=== PATIENT | female | born 1955 | race African-American/Black ===

== ENCOUNTER 2018-09-02 14:23 | Inpatient (IN) | payer MEDICARE, OTHER ==
[~2018-09-02] VITALS: Ht 165.1 cm; Wt 53.5 kg
[~2018-09-02 14:23] MED LIST: ETOMIDATE 2MG/ML 10ML VIAL IV ONE; SUCCINYLCHOLINE CHLORIDE 200MG/10ML IV ONE
[2018-09-02] MEDS ORDERED: SODIUM CHLORIDE 0.9% 1,000 ML IV ONE (14:46)
[2018-09-02 15:28] LABS: BASOPHILS % 0.5 % (0.0-2.0); EOSINOPHILS % 7.1 % (0.0-5.0); HEMATOCRIT. 27.7 % (36.0-48.0); HEMOGLOBIN. 9.3 g/dL (12.0-16.0); LYMPHOCYTES % 27.8 % (20.0-50.0); MEAN CORPUSCULAR HEMOGLOBIN 29.6 pg (28.0-32.0); MEAN CORPUSCULAR VOLUME 88.1 fL (81.0-99.0); MEAN PLATELET VOLUME 8.8 fl (7.4-10.4); MONOCYTES % 8.4 % (2.0-8.0); NEUTROPHILS % 56.2 % (40.0-76.0); PLATELET 260 x1000/uL (130-400); RED BLOOD CELL COUNT 3.14 mill/uL (4.2-5.4); RED CELL DISTRIBUTION WIDTH 14.2 % (11.6-14.6)
[2018-09-02 15:32] LABS: CHLORIDE 104 mEq/L (98-107); INR 1.1; PROTHROMBIN TIME 11.1 sec (9.1-11.1)
[2018-09-02 15:37] LABS: ETHANOL BLOOD < 10 mg/dL
[2018-09-02] MEDS ORDERED: PIPERACILLIN/TAZOBACTAM 3.375GM/50ML PREMIX IV ONE (15:45)
[2018-09-02] MEDS ORDERED: LORAZEPAM 2MG/ML CPJ IV ONE ×2 (15:45→17:30)
[2018-09-02] MEDS ORDERED: VANCOMYCIN 1 G PREMIX 200 ML IV SCH (15:45)
[2018-09-02] MEDS ORDERED: PIPERACILLIN/TAZ 3.375G PREMIX 50 ML IV NR (15:48)
[2018-09-02] MEDS ORDERED: LEVETIRACETAM 500MG PREMIX 100 ML IV ONE (16:00)
[2018-09-02 16:04] LABS: BG BASE EXCESS -0.5 mmol/L (-2.0-2.0); BG CARBOXYHEMOGLOBIN 0.3 % (0.5-1.5); BG DEOXYHEMOGLOBIN 0.5 % (0.0-5.0); BG HCO3 ACT 24.6 mmol/L (22.0-26.0); BG METHEMOGLOBIN 0.6 % (0.0-1.5); BG OXYGEN SATURATION 99.5 % (92.0-98.5); BG OXYHEMOGLOBIN 98.6 % (94.0-97.0); BG PCO2 42.6 mmHg (35.0-45.0); BG PO2 400.4 mmHg (75.0-100.0); BG SAMPLE SITE RIGHT BRACHIAL; BG TOTAL HEMOGLOBIN 9.8 g/dL (12.0-18.0); BG VENT MODE MASK - NRB
[2018-09-02 16:42] LABS: CLARITY URINE CLEAR (CLEAR); COLOR URINE YELLOW (YELLOW); KETONES URINE NEGATIVE (NEGATIVE); LEUKOCYTE ESTERASE URINE 2+ (NEGATIVE); NITRITE URINE POSITIVE (NEGATIVE); OCCULT BLOOD URINE NEGATIVE (NEGATIVE); PH URINE 5.5 (4.5-8.0); PROTEIN URINE NEGATIVE (NEGATIVE); SPECIFIC GRAVITY URINE 1.011 (1.005-1.030); UROBILINOGEN URINE 0.2 E.U./dL (0.2-1.0)
[2018-09-02 16:56] LABS: *BENZODIAZEPINES SCREEN URINE PRESUMTIVE POSITIVE (NEGATIVE); *COCAINE SCREEN URINE NEGATIVE (NEGATIVE)
[2018-09-02 16:57] LABS: *AMPHETAMINES SCREEN URINE NEGATIVE (NEGATIVE); *BARBITURATES SCREEN URINE NEGATIVE (NEGATIVE); CANNABINOID URINE SCREEN NEGATIVE (NEGATIVE); METHADONE URINE SCREEN NEGATIVE (NEGATIVE); OPIATES URINE SCREEN NEGATIVE (NEGATIVE); PHENCYCLIDINE URINE SCREEN NEGATIVE (NEGATIVE)
[2018-09-02] MEDS ORDERED: LORAZEPAM 2MG/ML CPJ ONE (17:30)
[2018-09-02] MEDS ORDERED: SUCCINYLCHOLINE CHLORIDE 200MG/10ML IV ONE (18:15)
[2018-09-02] MEDS ORDERED: ETOMIDATE 2MG/ML 10ML VIAL IV ONE (18:15)
[2018-09-02] MEDS ORDERED: PROPOFOL 10MG/ML 100ML 100 ML IV ONE (18:15)
[2018-09-02] MEDS ORDERED: CLONIDINE 0.1MG TABLET PO PRN (22:15)
[2018-09-02] MEDS ORDERED: ONDANSETRON HCL 4MG/2ML INJ IV PRN (22:15)
[2018-09-02] MEDS ORDERED: CEFTRIAXONE 1 G PREMIX 50 ML IV SCH (22:15)
[2018-09-02] MEDS ORDERED: PANTOPRAZOLE 80 MG in SODIUM CHLORIDE 0.9% 100 ML IV SCH (22:15)
[2018-09-02] MEDS ORDERED: PANTOPRAZOLE SODIUM 40 MG/VIAL IV ONE (22:26)
[2018-09-02] MEDS ORDERED: PROPOFOL 10MG/ML 100ML 100 ML IV SCH (22:30)
[2018-09-02] MEDS: SODIUM CHLORIDE 0.9% 1,000 ML IV SCH (22:32)
[2018-09-02] MEDS: LORAZEPAM 2MG/ML CPJ IV PRN (22:45)
[2018-09-03] VITALS (72 sets, daily range): BP systolic 64–165; BP diastolic 30–101
[2018-09-03] MEDS ORDERED: CEFTRIAXONE 1 G PREMIX 50 ML IV SCH (06:00)
[2018-09-03] MEDS ORDERED: PROPOFOL 10MG/ML 100ML 100 ML IV PRN ×3 (06:45→20:22)
[2018-09-03] MEDS: LORAZEPAM 2MG/ML CPJ IV PRN (07:41)
[2018-09-03 08:21] LABS: BG BASE EXCESS 3.1 mmol/L (-2.0-2.0); BG CARBOXYHEMOGLOBIN 0.3 % (0.5-1.5); BG DEOXYHEMOGLOBIN 0.8 % (0.0-5.0); BG FRACTION INSPIRED OXYGEN 40; BG HCO3 ACT 22.5 mmol/L (22.0-26.0); BG METHEMOGLOBIN 0.3 % (0.0-1.5); BG OXYGEN SATURATION 99.2 % (92.0-98.5); BG OXYHEMOGLOBIN 98.6 % (94.0-97.0); BG PCO2 20.2 mmHg (35.0-45.0); BG PH 7.665 (7.350-7.450); BG PO2 191.5 mmHg (75.0-100.0); BG SAMPLE SITE RIGHT BRACHIAL; BG TIDAL VOLUME(mL) 450 mL; BG TOTAL HEMOGLOBIN 10.2 g/dL (12.0-18.0); BG VENT MODE VENT - A/C; BG VENT RATE 14 set
[2018-09-03] MEDS ORDERED: NON FORMULARY PATIENT HOME MED EA XX SCH (09:00)
[2018-09-03] MEDS ORDERED: LEVETIRACETAM 1,000 MG in SODIUM CHLORIDE 0.9% 100 ML IV SCH (09:00)
[2018-09-03] MEDS ORDERED: PIPERACILLIN/TAZOBACTAM 3.375GM/50ML PREMIX IV ONE (09:15)
[2018-09-03] MEDS ORDERED: PHENYTOIN SODIUM 1000MG in SODIUM CHLORIDE 0.9% 100ML IV NR (09:15)
[2018-09-03 09:18] LABS: BASOPHILS % 0.6 % (0.0-2.0); HEMOGLOBIN. 9.6 g/dL (12.0-16.0); LYMPHOCYTES % 14.7 % (20.0-50.0); MEAN CORPUSCULAR HEMOGLOBIN 28.9 pg (28.0-32.0); MEAN PLATELET VOLUME 9.3 fl (7.4-10.4); MONOCYTES % 6.2 % (2.0-8.0); NEUTROPHILS % 76.5 % (40.0-76.0); PLATELET 273 x1000/uL (130-400); RED BLOOD CELL COUNT 3.34 mill/uL (4.2-5.4); RED CELL DISTRIBUTION WIDTH 13.8 % (11.6-14.6)
[2018-09-03] MEDS: PANTOPRAZOLE SODIUM 40 MG/VIAL IV SCH (09:57)
[2018-09-03] MEDS: SODIUM CHLORIDE 0.9% 1,000 ML IV SCH (09:58)
[2018-09-03] MEDS: VANCOMYCIN 750 MG PREMIX 150 ML IV SCH ×2 (10:27→22:34)
[2018-09-03 10:50] LABS: CHLORIDE 107 mEq/L (98-107)
[2018-09-03 10:59] LABS: CREATINE KINASE MB FRACTION 15.8 ng/mL (0.5-3.6); PHOSPHORUS 1.3 mg/dL (2.5-4.9)
[2018-09-03] MEDS: PIPERACILLIN/TAZ 3.375G PREMIX 50 ML IV SCH ×3 (11:06→22:35)
[2018-09-03] MEDS: NOREPINEPHRINE 4 MG in DEXT 5% WATER 246 ML IV PRN ×2 (11:06→22:19)
[2018-09-03] MEDS ORDERED: POTASSIUM CHLORIDE 20MEQ/PACKET PO NR (13:20)
[2018-09-03] MEDS ORDERED: POTASSIUM CHLORIDE INJ 40 MEQ in DEXT 5% WATER 500 ML IV NR (14:30)
[2018-09-03 15:41] LABS: BG BASE EXCESS 3.6 mmol/L (-2.0-2.0); BG CARBOXYHEMOGLOBIN 0.3 % (0.5-1.5); BG DEOXYHEMOGLOBIN 0.8 % (0.0-5.0); BG FRACTION INSPIRED OXYGEN 40; BG HCO3 ACT 22.1 mmol/L (22.0-26.0); BG METHEMOGLOBIN 0.4 % (0.0-1.5); BG OXYGEN SATURATION 99.2 % (92.0-98.5); BG OXYHEMOGLOBIN 98.5 % (94.0-97.0); BG PCO2 18.4 mmHg (35.0-45.0); BG PH 7.698 (7.350-7.450); BG PO2 209.5 mmHg (75.0-100.0); BG SAMPLE SITE RIGHT BRACHIAL; BG TIDAL VOLUME(mL) 450 mL; BG VENT MODE VENT - A/C; BG VENT RATE 14 set
[2018-09-03 17:14] LABS: BG BASE EXCESS -1.1 mmol/L (-2.0-2.0); BG CARBOXYHEMOGLOBIN 0.3 % (0.5-1.5); BG DEOXYHEMOGLOBIN 0.9 % (0.0-5.0); BG FRACTION INSPIRED OXYGEN 40; BG HCO3 ACT 19.8 mmol/L (22.0-26.0); BG METHEMOGLOBIN 0.5 % (0.0-1.5); BG OXYGEN SATURATION 99.1 % (92.0-98.5); BG OXYHEMOGLOBIN 98.3 % (94.0-97.0); BG PCO2 22.4 mmHg (35.0-45.0); BG PH 7.564 (7.350-7.450); BG PO2 208.3 mmHg (75.0-100.0); BG SAMPLE SITE RIGHT BRACHIAL; BG TIDAL VOLUME(mL) 450 mL; BG TOTAL HEMOGLOBIN 10.7 g/dL (12.0-18.0); BG VENT MODE VENT - A/C; BG VENT RATE 12 set
[2018-09-03] MEDS: LEVETIRACETAM 1,500 MG in SODIUM CHLORIDE 0.9% 100 ML IV SCH (20:43)
[2018-09-03] MEDS: LAMOTRIGINE 100MG TABLET PO SCH (20:44)
[2018-09-03] MEDS: PHENYTOIN SODIUM EXTENDED 100MG CAPSULE PO SCH (20:44)
[2018-09-03 21:05] LABS: CREATINE KINASE MB FRACTION 9.9 ng/mL (0.5-3.6)
[2018-09-03] MEDS: THIAMINE HCL 100MG TABLET PO SCH (22:34)
[2018-09-03] MEDS: MULTIVITAMINS,THER W-MINERALS TABLET PO SCH (22:35)
[2018-09-03] MEDS: FOLIC ACID 1MG TABLET PO SCH (22:35)
[2018-09-04] VITALS (81 sets, daily range): BP systolic 75–157; BP diastolic 27–140
[2018-09-04] MEDS: PIPERACILLIN/TAZ 3.375G PREMIX 50 ML IV SCH ×4 (05:45→23:09)
[2018-09-04 07:32] LABS: HEMOGLOBIN. 9.3 g/dL (12.0-16.0); MEAN CORPUSCULAR HEMOGLOBIN 29.9 pg (28.0-32.0); MEAN CORPUSCULAR VOLUME 86.8 fL (81.0-99.0); MEAN PLATELET VOLUME 10.1 fl (7.4-10.4); PLATELET 281 x1000/uL (130-400); RED BLOOD CELL COUNT 3.12 mill/uL (4.2-5.4); RED CELL DISTRIBUTION WIDTH 14.1 % (11.6-14.6)
[2018-09-04 07:33] LABS: CHLORIDE 103 mEq/L (98-107)
[2018-09-04 08:27] LABS: PLATELET ESTIMATE NORMAL
[2018-09-04] MEDS: PANTOPRAZOLE SODIUM 40 MG/VIAL IV SCH (08:54)
[2018-09-04] MEDS: MULTIVITAMINS,THER W-MINERALS TABLET PO SCH (08:55)
[2018-09-04] MEDS: LAMOTRIGINE 100MG TABLET PO SCH ×2 (08:55→20:52)
[2018-09-04] MEDS: THIAMINE HCL 100MG TABLET PO SCH (08:55)
[2018-09-04] MEDS: FOLIC ACID 1MG TABLET PO SCH (08:55)
[2018-09-04] MEDS: LEVETIRACETAM 1,500 MG in SODIUM CHLORIDE 0.9% 100 ML IV SCH ×2 (08:55→20:51)
[2018-09-04] MEDS: SODIUM CHLORIDE 0.9% 1,000 ML IV SCH ×2 (09:00→20:22)
[2018-09-04 09:21] LABS: BG BASE EXCESS -4.2 mmol/L (-2.0-2.0); BG CARBOXYHEMOGLOBIN 0.3 % (0.5-1.5); BG DEOXYHEMOGLOBIN 0.8 % (0.0-5.0); BG FRACTION INSPIRED OXYGEN 40; BG HCO3 ACT 17.5 mmol/L (22.0-26.0); BG METHEMOGLOBIN 0.5 % (0.0-1.5); BG OXYGEN SATURATION 99.2 % (92.0-98.5); BG OXYHEMOGLOBIN 98.4 % (94.0-97.0); BG PCO2 22.1 mmHg (35.0-45.0); BG PH 7.516 (7.350-7.450); BG PO2 174.7 mmHg (75.0-100.0); BG SAMPLE SITE RIGHT BRACHIAL; BG TIDAL VOLUME(mL) 450 mL; BG TOTAL HEMOGLOBIN 9.5 g/dL (12.0-18.0); BG VENT MODE VENT - A/C; BG VENT RATE 12 set
[2018-09-04] MEDS ORDERED: PROPOFOL 10MG/ML 100ML 100 ML IV PRN (10:30)
[2018-09-04] MEDS ORDERED: VANCOMYCIN 750 MG PREMIX 150 ML IV SCH (11:00)
[2018-09-04] MEDS: NOREPINEPHRINE 4 MG in DEXT 5% WATER 246 ML IV PRN (12:48)
[2018-09-04] MEDS ORDERED: POTASSIUM CHLORIDE INJ 40 MEQ in DEXT 5% WATER 250 ML IV NR (14:00)
[2018-09-04] MEDS: FENTANYL CITRATE/PF 500 MCG in SODIUM CHLORIDE 0.9% 40 ML IV PRN ×2 (14:07→20:21)
[2018-09-04] MEDS: MIDAZOLAM HCL 50 MG in DEXTROSE 5% WATER 40 ML IV PRN ×2 (14:08→20:20)
[2018-09-04] MEDS: PHENYTOIN SODIUM EXTENDED 100MG CAPSULE PO SCH (20:52)
[2018-09-04] MEDS: PHENYTOIN 100 MG/4 ML UDC GT SCH (23:12)
[2018-09-05] VITALS (82 sets, daily range): BP systolic 82–182; BP diastolic 55–110
[2018-09-05] MEDS: MIDAZOLAM HCL 50 MG in DEXTROSE 5% WATER 40 ML IV PRN ×2 (02:58→07:33)
[2018-09-05] MEDS: FENTANYL CITRATE/PF 500 MCG in SODIUM CHLORIDE 0.9% 40 ML IV PRN ×4 (02:59→18:59)
[2018-09-05] MEDS: PIPERACILLIN/TAZ 3.375G PREMIX 50 ML IV SCH ×4 (05:22→23:35)
[2018-09-05 05:54] LABS: CHLORIDE 104 mEq/L (98-107)
[2018-09-05 05:59] LABS: PHOSPHORUS 1.6 mg/dL (2.5-4.9)
[2018-09-05 07:35] LABS: BASOPHILS % 0.4 % (0.0-2.0); HEMATOCRIT. 31.8 % (36.0-48.0); HEMOGLOBIN. 10.3 g/dL (12.0-16.0); LYMPHOCYTES % 12.5 % (20.0-50.0); MEAN CORPUSCULAR HEMOGLOBIN 28.5 pg (28.0-32.0); MEAN CORPUSCULAR VOLUME 87.8 fL (81.0-99.0); MEAN PLATELET VOLUME 9.2 fl (7.4-10.4); MONOCYTES % 13.9 % (2.0-8.0); NEUTROPHILS % 71.2 % (40.0-76.0); PLATELET 305 x1000/uL (130-400); RED BLOOD CELL COUNT 3.62 mill/uL (4.2-5.4); RED CELL DISTRIBUTION WIDTH 14.1 % (11.6-14.6)
[2018-09-05] MEDS: THIAMINE HCL 100MG TABLET PO SCH (08:05)
[2018-09-05] MEDS: LAMOTRIGINE 100MG TABLET PO SCH ×2 (08:05→21:39)
[2018-09-05] MEDS: FOLIC ACID 1MG TABLET PO SCH (08:05)
[2018-09-05] MEDS: PANTOPRAZOLE SODIUM 40 MG/VIAL IV SCH (08:05)
[2018-09-05] MEDS: MULTIVITAMINS,THER W-MINERALS TABLET PO SCH (08:05)
[2018-09-05] MEDS: LEVETIRACETAM 1,500 MG in SODIUM CHLORIDE 0.9% 100 ML IV SCH ×2 (08:05→21:39)
[2018-09-05] MEDS ORDERED: SODIUM PHOS,M-BASIC-D-BASIC 20 MM in DEXT 5% WATER 243.3333 ML IV SCH (09:00)
[2018-09-05] MEDS: MAGNESIUM SULFATE 3 GM in DEXT 5% WATER 94 ML IV SCH ×2 (09:05→09:08)
[2018-09-05] MEDS: METOCLOPRAMIDE HCL 10MG/2ML VIAL IV SCH ×3 (16:26→23:36)
[2018-09-05] MEDS: SODIUM CHLORIDE 0.9% 1,000 ML IV SCH ×2 (16:27→23:35)
[2018-09-05] MEDS: NOREPINEPHRINE 4 MG in DEXT 5% WATER 246 ML IV PRN (16:28)
[2018-09-05] MEDS: PHENYTOIN 100 MG/4 ML UDC GT SCH (21:39)
[2018-09-06] VITALS (93 sets, daily range): BP systolic 80–147; BP diastolic 48–84
[2018-09-06] MEDS: MIDAZOLAM HCL 50 MG in DEXTROSE 5% WATER 40 ML IV PRN ×2 (01:24→06:36)
[2018-09-06] MEDS: FENTANYL CITRATE/PF 500 MCG in SODIUM CHLORIDE 0.9% 40 ML IV PRN ×3 (01:51→23:12)
[2018-09-06] MEDS: PIPERACILLIN/TAZ 3.375G PREMIX 50 ML IV SCH ×3 (05:36→18:43)
[2018-09-06] MEDS: METOCLOPRAMIDE HCL 10MG/2ML VIAL IV SCH ×3 (05:36→18:44)
[2018-09-06 06:30] LABS: BASOPHILS % 0.4 % (0.0-2.0); EOSINOPHILS % 10.6 % (0.0-5.0); HEMATOCRIT. 26.5 % (36.0-48.0); HEMOGLOBIN. 8.8 g/dL (12.0-16.0); LYMPHOCYTES % 22.5 % (20.0-50.0); MEAN CORPUSCULAR HEMOGLOBIN 29.3 pg (28.0-32.0); MEAN CORPUSCULAR VOLUME 87.9 fL (81.0-99.0); MEAN PLATELET VOLUME 9.1 fl (7.4-10.4); MONOCYTES % 12.5 % (2.0-8.0); PLATELET 248 x1000/uL (130-400); RED BLOOD CELL COUNT 3.01 mill/uL (4.2-5.4); RED CELL DISTRIBUTION WIDTH 14.4 % (11.6-14.6)
[2018-09-06 07:16] LABS: CHLORIDE 107 mEq/L (98-107)
[2018-09-06 07:22] LABS: LDL CHOLESTEROL 78 mg/dL (5-100)
[2018-09-06] MEDS: NOREPINEPHRINE 4 MG in DEXT 5% WATER 246 ML IV PRN (08:30)
[2018-09-06] MEDS: THIAMINE HCL 100MG TABLET PO SCH (09:55)
[2018-09-06] MEDS: FOLIC ACID 1MG TABLET PO SCH (09:55)
[2018-09-06] MEDS: LAMOTRIGINE 100MG TABLET PO SCH ×2 (09:55→20:31)
[2018-09-06] MEDS: PANTOPRAZOLE SODIUM 40 MG/VIAL IV SCH (09:55)
[2018-09-06] MEDS: MULTIVITAMINS,THER W-MINERALS TABLET PO SCH (09:55)
[2018-09-06] MEDS: LEVETIRACETAM 1,500 MG in SODIUM CHLORIDE 0.9% 100 ML IV SCH ×2 (10:01→20:30)
[2018-09-06] MEDS ORDERED: DEXT 10% WATER 1,000 ML IV SCH (10:45)
[2018-09-06] MEDS ORDERED: DEXTROSE 50% WATER 50ML SYRINGE IV PRN (10:45)
[2018-09-06 11:58] LABS: BG BASE EXCESS -5.7 mmol/L (-2.0-2.0); BG CARBOXYHEMOGLOBIN 0.3 % (0.5-1.5); BG FRACTION INSPIRED OXYGEN 40; BG HCO3 ACT 19.3 mmol/L (22.0-26.0); BG METHEMOGLOBIN 0.4 % (0.0-1.5); BG OXYHEMOGLOBIN 98.3 % (94.0-97.0); BG PCO2 35.5 mmHg (35.0-45.0); BG PEEP (cmH2O) 0 cmH2O; BG PH 7.353 (7.350-7.450); BG PO2 175.4 mmHg (75.0-100.0); BG PRESSURE SUPPORT 8; BG SAMPLE SITE RIGHT RADIAL; BG TOTAL HEMOGLOBIN 8.6 g/dL (12.0-18.0); BG VENT MODE VENT - CPAP
[2018-09-06] MEDS: ACETAMINOPHEN 325MG TABLET PO PRN (20:25)
[2018-09-06] MEDS: PHENYTOIN 100 MG/4 ML UDC GT SCH (20:30)
[2018-09-06] MEDS: SODIUM CHLORIDE 0.9% 1,000 ML IV SCH (23:19)
[2018-09-07] VITALS (92 sets, daily range): BP systolic 73–148; BP diastolic 30–93
[2018-09-07] MEDS: MIDAZOLAM HCL 50 MG in DEXTROSE 5% WATER 40 ML IV PRN ×2 (00:39→06:46)
[2018-09-07] MEDS: PIPERACILLIN/TAZ 3.375G PREMIX 50 ML IV SCH ×5 (00:51→22:15)
[2018-09-07] MEDS: NOREPINEPHRINE 4 MG in DEXT 5% WATER 246 ML IV PRN (05:11)
[2018-09-07] MEDS: SODIUM CHLORIDE 0.9% 1,000 ML IV SCH ×2 (05:12→11:49)
[2018-09-07] MEDS: METOCLOPRAMIDE HCL 10MG/2ML VIAL IV SCH ×2 (05:19)
[2018-09-07 05:30] LABS: BASOPHILS % 0.5 % (0.0-2.0); EOSINOPHILS % 12.6 % (0.0-5.0); HEMATOCRIT. 23.5 % (36.0-48.0); HEMOGLOBIN. 7.7 g/dL (12.0-16.0); LYMPHOCYTES % 20.6 % (20.0-50.0); MEAN CORPUSCULAR VOLUME 87.9 fL (81.0-99.0); MEAN PLATELET VOLUME 8.8 fl (7.4-10.4); MONOCYTES % 13.6 % (2.0-8.0); NEUTROPHILS % 52.7 % (40.0-76.0); PLATELET 265 x1000/uL (130-400); RED BLOOD CELL COUNT 2.67 mill/uL (4.2-5.4); RED CELL DISTRIBUTION WIDTH 14.3 % (11.6-14.6)
[2018-09-07 05:43] LABS: CHLORIDE 111 mEq/L (98-107)
[2018-09-07] MEDS: PANTOPRAZOLE SODIUM 40 MG/VIAL IV SCH (09:00)
[2018-09-07] MEDS: LEVETIRACETAM 1,500 MG in SODIUM CHLORIDE 0.9% 100 ML IV SCH ×2 (09:25→21:12)
[2018-09-07] MEDS: FENTANYL CITRATE/PF 500 MCG in SODIUM CHLORIDE 0.9% 40 ML IV PRN (09:25)
[2018-09-07] MEDS: FOLIC ACID 1MG TABLET PO SCH (09:31)
[2018-09-07] MEDS: MULTIVITAMINS,THER W-MINERALS TABLET PO SCH (09:31)
[2018-09-07] MEDS: THIAMINE HCL 100MG TABLET PO SCH (09:31)
[2018-09-07] MEDS: LAMOTRIGINE 100MG TABLET PO SCH ×2 (09:31→20:16)
[2018-09-07] MEDS ORDERED: IPRATROPIUM/ALBUTEROL 0.5-3(2.5)MG/3ML NEB HHN PRN (11:30)
[2018-09-07] MEDS: IPRATROPIUM/ALBUTEROL 0.5-3(2.5)MG/3ML NEB HHN SCH ×3 (12:36→19:55)
[2018-09-07] MEDS: ACETYLCYSTEINE 100MG/ML 10% VIAL 4ML INH SCH (12:36)
[2018-09-07] MEDS: ACETAMINOPHEN 325MG TABLET PO PRN (16:03)
[2018-09-07] MEDS: LORAZEPAM 2MG/ML CPJ IV PRN ×2 (16:03→20:16)
[2018-09-07] MEDS: PHENYTOIN 100 MG/4 ML UDC GT SCH (20:16)
[2018-09-08] VITALS (95 sets, daily range): BP systolic 78–184; BP diastolic 38–117
[2018-09-08] MEDS: IPRATROPIUM/ALBUTEROL 0.5-3(2.5)MG/3ML NEB HHN SCH ×7 (00:02→23:48)
[2018-09-08] MEDS: ACETYLCYSTEINE 100MG/ML 10% VIAL 4ML INH SCH ×4 (00:02→23:48)
[2018-09-08] MEDS: ACETAMINOPHEN 325MG TABLET PO PRN ×4 (00:30→23:40)
[2018-09-08] MEDS: PIPERACILLIN/TAZ 3.375G PREMIX 50 ML IV SCH ×4 (04:41→23:28)
[2018-09-08 05:44] LABS: BASOPHILS % 0.7 % (0.0-2.0); EOSINOPHILS % 4.2 % (0.0-5.0); HEMATOCRIT. 21.6 % (36.0-48.0); HEMOGLOBIN. 7.2 g/dL (12.0-16.0); LYMPHOCYTES % 16.9 % (20.0-50.0); MEAN CORPUSCULAR HEMOGLOBIN 29.2 pg (28.0-32.0); MEAN CORPUSCULAR VOLUME 87.1 fL (81.0-99.0); MEAN PLATELET VOLUME 8.4 fl (7.4-10.4); MONOCYTES % 14.5 % (2.0-8.0); NEUTROPHILS % 63.7 % (40.0-76.0); PLATELET 289 x1000/uL (130-400); RED BLOOD CELL COUNT 2.48 mill/uL (4.2-5.4); RED CELL DISTRIBUTION WIDTH 14.1 % (11.6-14.6)
[2018-09-08 06:10] LABS: CHLORIDE 107 mEq/L (98-107)
[2018-09-08] MEDS: PANTOPRAZOLE SODIUM 40 MG/VIAL IV SCH (08:37)
[2018-09-08] MEDS: LAMOTRIGINE 100MG TABLET PO SCH ×2 (08:37→21:10)
[2018-09-08] MEDS: FOLIC ACID 1MG TABLET PO SCH (08:37)
[2018-09-08] MEDS: MULTIVITAMINS,THER W-MINERALS TABLET PO SCH (08:37)
[2018-09-08] MEDS: THIAMINE HCL 100MG TABLET PO SCH (08:37)
[2018-09-08] MEDS: LEVETIRACETAM 1,500 MG in SODIUM CHLORIDE 0.9% 100 ML IV SCH ×2 (08:50→21:09)
[2018-09-08] MEDS ORDERED: LORAZEPAM 2MG/ML CPJ IV PRN (09:15)
[2018-09-08] MEDS: MORPHINE SULFATE 4 MG/ML CPJ (NOT FOR IM USE) IV PRN ×2 (09:41→22:40)
[2018-09-08] MEDS ORDERED: KCL 10MEQ/50ML PREMIX 200 ML IV PRN (09:45)
[2018-09-08] MEDS ORDERED: QUETIAPINE FUMARATE 25MG TABLET NG SCH (10:15)
[2018-09-08] MEDS: SODIUM CHLORIDE 0.9% 1,000 ML IV SCH ×2 (10:20→12:02)
[2018-09-08 10:28] LABS: PHOSPHORUS 2.5 mg/dL (2.5-4.9)
[2018-09-08] MEDS ORDERED: MAGNESIUM 1 G PREMIX 100 ML IV NR (11:00)
[2018-09-08] MEDS: QUETIAPINE FUMARATE 25MG TABLET NG SCH ×2 (12:01→21:10)
[2018-09-08] MEDS ORDERED: POTASSIUM CHLORIDE INJ 40 MEQ in DEXT 5% WATER 250 ML IV NR (13:30)
[2018-09-08] MEDS: LORAZEPAM 2MG/ML CPJ IV PRN (17:59)
[2018-09-08] MEDS: PHENYTOIN 100 MG/4 ML UDC GT SCH (21:09)
[2018-09-09] VITALS (47 sets, daily range): BP systolic 80–172; BP diastolic 39–123
[2018-09-09] MEDS: SODIUM CHLORIDE 0.9% 1,000 ML IV SCH ×2 (01:19→05:40)
[2018-09-09] MEDS: IPRATROPIUM/ALBUTEROL 0.5-3(2.5)MG/3ML NEB HHN SCH ×5 (04:12→20:20)
[2018-09-09] MEDS: PIPERACILLIN/TAZ 3.375G PREMIX 50 ML IV SCH ×3 (05:40→17:05)
[2018-09-09 06:17] LABS: BASOPHILS % 0.6 % (0.0-2.0); HEMATOCRIT. 25.3 % (36.0-48.0); HEMOGLOBIN. 8.6 g/dL (12.0-16.0); LYMPHOCYTES % 17.5 % (20.0-50.0); MEAN CORPUSCULAR HEMOGLOBIN 29.2 pg (28.0-32.0); MEAN CORPUSCULAR VOLUME 85.1 fL (81.0-99.0); MEAN PLATELET VOLUME 8.1 fl (7.4-10.4); MONOCYTES % 10.5 % (2.0-8.0); NEUTROPHILS % 63.4 % (40.0-76.0); PLATELET 305 x1000/uL (130-400); RED BLOOD CELL COUNT 2.97 mill/uL (4.2-5.4); RED CELL DISTRIBUTION WIDTH 14.1 % (11.6-14.6)
[2018-09-09 06:47] LABS: CHLORIDE 108 mEq/L (98-107)
[2018-09-09] MEDS: LORAZEPAM 2MG/ML CPJ IV PRN ×3 (07:02→22:31)
[2018-09-09] MEDS: ACETYLCYSTEINE 100MG/ML 10% VIAL 4ML INH SCH ×2 (08:13→16:34)
[2018-09-09] MEDS: PANTOPRAZOLE SODIUM 40 MG/VIAL IV SCH (08:39)
[2018-09-09] MEDS: LEVETIRACETAM 1,500 MG in SODIUM CHLORIDE 0.9% 100 ML IV SCH ×2 (08:39→21:54)
[2018-09-09] MEDS: LAMOTRIGINE 100MG TABLET PO SCH ×2 (08:40→21:54)
[2018-09-09] MEDS: QUETIAPINE FUMARATE 25MG TABLET NG SCH ×2 (08:40→21:54)
[2018-09-09] MEDS: THIAMINE HCL 100MG TABLET PO SCH (08:40)
[2018-09-09] MEDS: MULTIVITAMINS,THER W-MINERALS TABLET PO SCH (08:40)
[2018-09-09] MEDS: FOLIC ACID 1MG TABLET PO SCH (08:40)
[2018-09-09] MEDS: AMLODIPINE 2.5MG TABLET PO SCH ×2 (10:07→21:54)
[2018-09-09] MEDS: MORPHINE SULFATE 4 MG/ML CPJ (NOT FOR IM USE) IV PRN ×2 (15:55→20:05)
[2018-09-09] MEDS ORDERED: PHENYTOIN SODIUM IV NR (18:00)
[2018-09-09] MEDS ORDERED: SODIUM CHLORIDE 0.9% IV NR (18:00)
[2018-09-09] MEDS: PHENYTOIN 100 MG/4 ML UDC GT SCH (20:29)
[2018-09-09] MEDS: ACETAMINOPHEN 325MG TABLET PO PRN (22:30)
[2018-09-10] VITALS (44 sets, daily range): BP systolic 83–159; BP diastolic 40–101
[2018-09-10] MEDS: PIPERACILLIN/TAZ 3.375G PREMIX 50 ML IV SCH (00:18)
[2018-09-10] MEDS: ACETYLCYSTEINE 100MG/ML 10% VIAL 4ML INH SCH ×3 (00:20→16:37)
[2018-09-10] MEDS: IPRATROPIUM/ALBUTEROL 0.5-3(2.5)MG/3ML NEB HHN SCH ×6 (00:20→20:09)
[2018-09-10] MEDS: MORPHINE SULFATE 4 MG/ML CPJ (NOT FOR IM USE) IV PRN ×3 (05:03→21:19)
[2018-09-10 05:46] LABS: BASOPHILS % 0.4 % (0.0-2.0); EOSINOPHILS % 8.4 % (0.0-5.0); HEMATOCRIT. 23.3 % (36.0-48.0); LYMPHOCYTES % 14.1 % (20.0-50.0); MEAN CORPUSCULAR HEMOGLOBIN 29.5 pg (28.0-32.0); MEAN CORPUSCULAR VOLUME 85.8 fL (81.0-99.0); MEAN PLATELET VOLUME 8.2 fl (7.4-10.4); MONOCYTES % 9.8 % (2.0-8.0); NEUTROPHILS % 67.3 % (40.0-76.0); PLATELET 325 x1000/uL (130-400); RED BLOOD CELL COUNT 2.72 mill/uL (4.2-5.4); RED CELL DISTRIBUTION WIDTH 14.2 % (11.6-14.6)
[2018-09-10 07:16] LABS: CHLORIDE 110 mEq/L (98-107)
[2018-09-10] MEDS: QUETIAPINE FUMARATE 25MG TABLET NG SCH ×2 (08:58→20:54)
[2018-09-10] MEDS: FOLIC ACID 1MG TABLET PO SCH (08:58)
[2018-09-10] MEDS: LAMOTRIGINE 100MG TABLET PO SCH ×2 (08:58→20:54)
[2018-09-10] MEDS: PANTOPRAZOLE SODIUM 40 MG/VIAL IV SCH (08:58)
[2018-09-10] MEDS: THIAMINE HCL 100MG TABLET PO SCH (08:58)
[2018-09-10] MEDS: AMLODIPINE 2.5MG TABLET PO SCH ×2 (08:59→20:54)
[2018-09-10] MEDS: MULTIVITAMINS,THER W-MINERALS TABLET PO SCH (08:59)
[2018-09-10] MEDS: LORAZEPAM 2MG/ML CPJ IV PRN ×2 (09:25→13:49)
[2018-09-10] MEDS: LEVETIRACETAM 1,500 MG in SODIUM CHLORIDE 0.9% 100 ML IV SCH ×2 (10:49→20:55)
[2018-09-10] MEDS ORDERED: POTASSIUM CHLORIDE 20MEQ/PACKET PO NR (11:15)
[2018-09-10] MEDS: ACETAMINOPHEN 650MG/20.3ML UDC JT PRN (18:39)
[2018-09-10] MEDS: PHENYTOIN 100 MG/4 ML UDC GT SCH (20:55)
[2018-09-11] VITALS (48 sets, daily range): BP systolic 92–176; BP diastolic 44–105
[2018-09-11] MEDS: ACETYLCYSTEINE 100MG/ML 10% VIAL 4ML INH SCH ×3 (00:15→15:58)
[2018-09-11] MEDS: IPRATROPIUM/ALBUTEROL 0.5-3(2.5)MG/3ML NEB HHN SCH ×6 (00:19→20:45)
[2018-09-11] MEDS: LORAZEPAM 2MG/ML CPJ IV PRN ×4 (00:22→21:43)
[2018-09-11] MEDS: ACETAMINOPHEN 650MG/20.3ML UDC JT PRN (08:07)
[2018-09-11] MEDS: MORPHINE SULFATE 4 MG/ML CPJ (NOT FOR IM USE) IV PRN ×2 (08:08→22:49)
[2018-09-11] MEDS: AMLODIPINE 2.5MG TABLET PO SCH ×2 (10:26→20:37)
[2018-09-11] MEDS: LEVETIRACETAM 1,500 MG in SODIUM CHLORIDE 0.9% 100 ML IV SCH ×2 (10:26→20:37)
[2018-09-11] MEDS: LAMOTRIGINE 100MG TABLET PO SCH ×2 (10:27→20:38)
[2018-09-11] MEDS: THIAMINE HCL 100MG TABLET PO SCH (10:27)
[2018-09-11] MEDS: FOLIC ACID 1MG TABLET PO SCH (10:27)
[2018-09-11] MEDS: MULTIVITAMINS,THER W-MINERALS TABLET PO SCH (10:27)
[2018-09-11] MEDS: QUETIAPINE FUMARATE 25MG TABLET NG SCH ×2 (10:27→20:37)
[2018-09-11] MEDS ORDERED: DEXT 5% IV SCH (15:00)
[2018-09-11] MEDS ORDERED: WATER IV SCH (15:00)
[2018-09-11] MEDS ORDERED: CEFEPIME 1,000 MG in DEXTROSE 5% WATER 50 ML IV SCH (15:00)
[2018-09-11] MEDS ORDERED: VANCOMYCIN IV SCH (15:00)
[2018-09-11 16:23] LABS: CHLORIDE 106 mEq/L (98-107)
[2018-09-11] MEDS: VANCOMYCIN 1250MG in DEXTROSE 5% WATER 250ML IV NR ×2 (16:23→16:25)
[2018-09-11 17:00] LABS: CLARITY URINE CLEAR (CLEAR); COLOR URINE YELLOW (YELLOW); KETONES URINE NEGATIVE (NEGATIVE); LEUKOCYTE ESTERASE URINE 1+ (NEGATIVE); NITRITE URINE NEGATIVE (NEGATIVE); OCCULT BLOOD URINE 2+ (NEGATIVE); PROTEIN URINE TRACE (NEGATIVE); SPECIFIC GRAVITY URINE 1.018 (1.005-1.030); UROBILINOGEN URINE 0.2 E.U./dL (0.2-1.0)
[2018-09-11] MEDS: CEFEPIME 1,000 MG in DEXTROSE 5% WATER 50 ML IV SCH (18:18)
[2018-09-11] MEDS: PHENYTOIN 100 MG/4 ML UDC GT SCH (20:37)
[2018-09-12] VITALS (45 sets, daily range): BP systolic 82–141; BP diastolic 41–101
[2018-09-12] MEDS: IPRATROPIUM/ALBUTEROL 0.5-3(2.5)MG/3ML NEB HHN SCH ×7 (00:07→23:45)
[2018-09-12] MEDS: ACETYLCYSTEINE 100MG/ML 10% VIAL 4ML INH SCH ×2 (00:08→08:10)
[2018-09-12] MEDS: VANCOMYCIN 750 MG PREMIX 150 ML IV SCH ×2 (03:05→16:05)
[2018-09-12] MEDS: CEFEPIME 1,000 MG in DEXTROSE 5% WATER 50 ML IV SCH ×2 (04:54→17:15)
[2018-09-12] MEDS: LORAZEPAM 2MG/ML CPJ IV PRN ×3 (04:54→17:52)
[2018-09-12] MEDS: MORPHINE SULFATE 4 MG/ML CPJ (NOT FOR IM USE) IV PRN ×2 (04:55→14:32)
[2018-09-12 05:14] LABS: BASOPHILS % 0.3 % (0.0-2.0); EOSINOPHILS % 6.5 % (0.0-5.0); HEMATOCRIT. 23.7 % (36.0-48.0); HEMOGLOBIN. 7.9 g/dL (12.0-16.0); LYMPHOCYTES % 18.7 % (20.0-50.0); MEAN CORPUSCULAR VOLUME 86.8 fL (81.0-99.0); MEAN PLATELET VOLUME 7.3 fl (7.4-10.4); MONOCYTES % 8.6 % (2.0-8.0); NEUTROPHILS % 65.9 % (40.0-76.0); PLATELET 418 x1000/uL (130-400); RED BLOOD CELL COUNT 2.73 mill/uL (4.2-5.4); RED CELL DISTRIBUTION WIDTH 14.4 % (11.6-14.6)
[2018-09-12 05:21] LABS: CHLORIDE 105 mEq/L (98-107)
[2018-09-12 05:25] LABS: CREATINE KINASE 50 IU/L (26-192)
[2018-09-12] MEDS: LAMOTRIGINE 100MG TABLET PO SCH ×2 (08:09→21:23)
[2018-09-12] MEDS: THIAMINE HCL 100MG TABLET PO SCH (08:09)
[2018-09-12] MEDS: MULTIVITAMINS,THER W-MINERALS TABLET PO SCH (08:09)
[2018-09-12] MEDS: QUETIAPINE FUMARATE 25MG TABLET NG SCH ×2 (08:10→21:24)
[2018-09-12] MEDS: AMLODIPINE 2.5MG TABLET PO SCH ×2 (08:10→21:23)
[2018-09-12] MEDS: FOLIC ACID 1MG TABLET PO SCH (08:10)
[2018-09-12] MEDS: LEVETIRACETAM 1,500 MG in SODIUM CHLORIDE 0.9% 100 ML IV SCH ×2 (09:16→21:21)
[2018-09-12] MEDS: PHENYTOIN 100 MG/4 ML UDC GT SCH (21:22)
[2018-09-13] VITALS (45 sets, daily range): BP systolic 99–237; BP diastolic 41–167
[2018-09-13] MEDS: MORPHINE SULFATE 4 MG/ML CPJ (NOT FOR IM USE) IV PRN ×4 (02:43→18:44)
[2018-09-13] MEDS: IPRATROPIUM/ALBUTEROL 0.5-3(2.5)MG/3ML NEB HHN SCH ×5 (04:00→19:37)
[2018-09-13] MEDS: CEFEPIME 1,000 MG in DEXTROSE 5% WATER 50 ML IV SCH ×2 (04:07→17:08)
[2018-09-13 05:17] LABS: BASOPHILS % 0.5 % (0.0-2.0); EOSINOPHILS % 6.8 % (0.0-5.0); HEMATOCRIT. 22.4 % (36.0-48.0); HEMOGLOBIN. 7.6 g/dL (12.0-16.0); LYMPHOCYTES % 13.2 % (20.0-50.0); MEAN CORPUSCULAR HEMOGLOBIN 29.4 pg (28.0-32.0); MEAN CORPUSCULAR VOLUME 86.4 fL (81.0-99.0); MEAN PLATELET VOLUME 7.5 fl (7.4-10.4); MONOCYTES % 9.2 % (2.0-8.0); NEUTROPHILS % 70.3 % (40.0-76.0); PLATELET 442 x1000/uL (130-400); RED BLOOD CELL COUNT 2.59 mill/uL (4.2-5.4)
[2018-09-13 05:24] LABS: CHLORIDE 105 mEq/L (98-107)
[2018-09-13] MEDS ORDERED: VANCOMYCIN 750 MG PREMIX 150 ML IV SCH (06:00)
[2018-09-13 08:59] LABS: BG DEOXYHEMOGLOBIN 0.7 % (0.0-5.0); BG HCO3 ACT 25.8 mmol/L (22.0-26.0); BG METHEMOGLOBIN 0.2 % (0.0-1.5); BG OXYGEN SATURATION 99.3 % (92.0-98.5); BG OXYHEMOGLOBIN 99.1 % (94.0-97.0); BG PCO2 36.8 mmHg (35.0-45.0); BG PH 7.464 (7.350-7.450); BG SAMPLE SITE RIGHT RADIAL; BG TIDAL VOLUME(mL) 450 mL; BG TOTAL HEMOGLOBIN 8.4 g/dL (12.0-18.0); BG VENT MODE VENT - SIMV; BG VENT RATE 8 set
[2018-09-13] MEDS: LEVETIRACETAM 1,500 MG in SODIUM CHLORIDE 0.9% 100 ML IV SCH ×2 (09:01→20:38)
[2018-09-13] MEDS: QUETIAPINE FUMARATE 25MG TABLET NG SCH ×2 (09:01→20:40)
[2018-09-13] MEDS: FOLIC ACID 1MG TABLET PO SCH (09:01)
[2018-09-13] MEDS: AMLODIPINE 2.5MG TABLET PO SCH ×2 (09:01→20:39)
[2018-09-13] MEDS: THIAMINE HCL 100MG TABLET PO SCH (09:01)
[2018-09-13] MEDS: MULTIVITAMINS,THER W-MINERALS TABLET PO SCH (09:01)
[2018-09-13] MEDS: LAMOTRIGINE 100MG TABLET PO SCH ×2 (09:01→20:40)
[2018-09-13] MEDS ORDERED: LORAZEPAM 2MG/ML CPJ IV PRN (14:00)
[2018-09-13] MEDS ORDERED: LIDOCAINE HCL/PF 1% 2ML VIAL ONE (15:24)
[2018-09-13] MEDS ORDERED: VANCOMYCIN 1 G PREMIX 200 ML IV SCH (18:00)
[2018-09-13] MEDS: PHENYTOIN 100 MG/4 ML UDC GT SCH (20:39)
== END 2018-09-13 21:25 | disposition short-term general hospital (02) | DRG 870 ==
LOC: ER 14:46 → MICUSO 18:47 → ENRESERV 23:22 → EDBEDREQ 09-03 01:22
PROVIDERS: ADMIT Family Medicine Adult Medicine; ATTEND Family Medicine Adult Medicine
PROC: 5A1955Z Respiratory Ventilation, Greater than 96 Consecutive Hours (ICD-10-PCS; principal; 2018-09-02)
PROC: 05HY33Z Insertion of Infusion Device into Upper Vein, Percutaneous Approach (ICD-10-PCS; 2018-09-03)
PROC: B54MZZA Ultrasonography of Right Upper Extremity Veins, Guidance (ICD-10-PCS; 2018-09-03)
PROC: 30233N1 Transfusion of Nonautologous Red Blood Cells into Peripheral Vein, Percutaneous Approach (ICD-10-PCS; 2018-09-08)
DX: A41.59 Other Gram-negative sepsis (principal); J69.0 Pneumonitis due to inhalation of food and vomit; J96.01 Acute respiratory failure with hypoxia; R65.21 Severe sepsis with septic shock; G93.1 Anoxic brain damage, not elsewhere classified; N39.0 Urinary tract infection, site not specified; I48.92 Unspecified atrial flutter; B96.1 Klebsiella pneumoniae [K. pneumoniae] as the cause of diseases classified elsewhere; G40.901 Epilepsy, unspecified, not intractable, with status epilepticus; D64.9 Anemia, unspecified; E78.1 Pure hyperglyceridemia; E83.39 Other disorders of phosphorus metabolism; E83.42 Hypomagnesemia; E87.6 Hypokalemia; F03.90 Unspecified dementia, unspecified severity, without behavioral disturbance, psychotic disturbance, mood disturbance, and anxiety; I11.0 Hypertensive heart disease with heart failure; I49.3 Ventricular premature depolarization; I50.9 Heart failure, unspecified; J44.9 Chronic obstructive pulmonary disease, unspecified; R13.10 Dysphagia, unspecified; F19.10 Other psychoactive substance abuse, uncomplicated; Z51.5 Encounter for palliative care; Z82.49 Family history of ischemic heart disease and other diseases of the circulatory system; Z86.73 Personal history of transient ischemic attack (TIA), and cerebral infarction without residual deficits; Z93.1 Gastrostomy status; Z87.891 Personal history of nicotine dependence
CPT/HCPCS: 31500; 36415; 36569; 36600; 43760; 51702; 70551; 71045; 74018; 76937; 80048; 80185; 80202; 80305; 82375; 82550; 82553; 82805; 82962; 83605; 83721; 83735; 84100; 84134; 84478; 84484; 86850; 86900; 86920; 87070; 87077; 87186; 93005; 93306; 93970; 94002; 94003; 94640; 96365; 96375; 99152; 99291; A6261; C1725; C1769; C1893; C9113; G0482; J0330; J0692; J0696; J1165; J1953; J2060; J2250; J2270; J2543; J2704; J2765; J3010; J3370; J3475; J3480; J3490; J7030; J7050; J7060; J7608; J7620; P9016

== ENCOUNTER 2019-09-13 09:39 | Inpatient (IN) | payer MEDICARE, OTHER ==
[~2019-09-13] VITALS: Ht 162.6 cm; Wt 31.8 kg
[2019-09-13] MEDS ORDERED: LORAZEPAM 2MG/ML CPJ IV ONE (11:30)
[2019-09-13] MEDS ORDERED: SODIUM CHLORIDE 0.9% 500 ML IV ONE (11:32)
[2019-09-13 12:44] LABS: CHLORIDE 113 mEq/L (98-107)
[2019-09-13 12:49] LABS: BASOPHILS % 0.3 % (0.0-2.0); ETHANOL BLOOD < 10 mg/dL; HEMATOCRIT. 28.4 % (36.0-48.0); HEMOGLOBIN. 9.5 g/dL (12.0-16.0); LYMPHOCYTES % 28.8 % (20.0-50.0); MEAN CORPUSCULAR HEMOGLOBIN 31.2 pg (28.0-32.0); MEAN CORPUSCULAR VOLUME 93.5 fL (81.0-99.0); MEAN PLATELET VOLUME 8.2 fl (7.4-10.4); MONOCYTES % 6.8 % (2.0-8.0); NEUTROPHILS % 64.1 % (40.0-76.0); PLATELET 302 x1000/uL (130-400); RED BLOOD CELL COUNT 3.04 mill/uL (4.2-5.4); RED CELL DISTRIBUTION WIDTH 14.7 % (11.6-14.6)
[2019-09-13] MEDS ORDERED: ONDANSETRON HCL 4MG/2ML INJ IV PRN (14:45)
[2019-09-13] MEDS ORDERED: IPRATROPIUM/ALBUTEROL 0.5-3(2.5)MG/3ML NEB HHN PRN (14:45)
[2019-09-13] MEDS ORDERED: MAGNESIUM/ALUMINUM HYDROXIDE/SIMETHICONE 30ML UDC PO PRN (14:45)
[2019-09-13] MEDS ORDERED: ACETAMINOPHEN 325MG TABLET PO PRN (14:45)
[2019-09-13] MEDS ORDERED: CLONIDINE 0.1MG TABLET PO PRN (14:45)
[2019-09-13] MEDS ORDERED: LORAZEPAM 2MG/ML CPJ IV PRN (14:45)
[2019-09-13 15:02] LABS: PHOSPHORUS 2.9 mg/dL (2.5-4.9)
[2019-09-13 15:50] VITALS: BP 101/58
[2019-09-13] MEDS ORDERED: ENOXAPARIN 40MG/0.4ML SYR SUBCUT SCH (16:00)
[2019-09-13 16:08] VITALS: BP 101/58
[2019-09-13] MEDS ORDERED: LEVETIRACETAM 500MG PREMIX 100 ML IV SCH (17:00)
[2019-09-13 18:04] LABS: TOTAL IRON BINDING CAPACITY 273 ug/dL (250-450)
[2019-09-13 18:26] LABS: FERRITIN 535 ng/mL (10-291)
[2019-09-13 18:32] LABS: VITAMIN B12 SERUM 1859 pg/mL (211-911)
[2019-09-13 20:00] VITALS: BP 113/85
[2019-09-13] MEDS ORDERED: LEVETIRACETAM 500MG in SODIUM CHLORIDE 0.9% 100ML IV SCH (21:00)
[2019-09-14] VITALS: BP 115/75
[2019-09-14 04:00] VITALS: BP 112/66
[2019-09-14 06:55] LABS: HEMATOCRIT. 30.2 % (36.0-48.0); HEMOGLOBIN. 9.9 g/dL (12.0-16.0); MEAN CORPUSCULAR HEMOGLOBIN 30.3 pg (28.0-32.0); MEAN CORPUSCULAR VOLUME 92.5 fL (81.0-99.0); MEAN PLATELET VOLUME 9.3 fl (7.4-10.4); PLATELET 232 x1000/uL (130-400); RED BLOOD CELL COUNT 3.26 mill/uL (4.2-5.4); RED CELL DISTRIBUTION WIDTH 14.5 % (11.6-14.6)
[2019-09-14 07:28] LABS: CHLORIDE 113 mEq/L (98-107)
[2019-09-14 07:38] LABS: LDL CHOLESTEROL 128 mg/dL (5-100)
[2019-09-14 07:39] LABS: HDL CHOLESTEROL 75 mg/dL (40-59)
[2019-09-14] MEDS: FOLIC ACID 1MG TABLET PO SCH ×2 (08:35→10:55)
[2019-09-14] MEDS: ENOXAPARIN 30MG/0.3ML SYR SUBCUT SCH ×2 (08:35→10:54)
[2019-09-14] MEDS: THIAMINE HCL 100MG TABLET PO SCH ×2 (08:35→10:55)
[2019-09-14] MEDS: LEVETIRACETAM 1,000 MG in SODIUM CHLORIDE 0.9% 100 ML IV SCH ×2 (08:35→22:00)
[2019-09-14] MEDS: MULTIVITAMINS,THER W-MINERALS TABLET PO SCH ×2 (08:35→10:55)
[2019-09-14 09:47] VITALS: BP 93/48
[2019-09-14] MEDS ORDERED: PHENYTOIN SODIUM 1,000 MG in SODIUM CHLORIDE 0.9% 100 ML IV NR (10:00)
[2019-09-14 12:00] VITALS: BP 90/49
[2019-09-14 13:12] LABS: PLATELET ESTIMATE NORMAL
[2019-09-14 16:00] VITALS: BP 90/50
[2019-09-14 20:00] VITALS: BP 91/51
[2019-09-14] MEDS ORDERED: POTASSIUM CHLORIDE 20MEQ/PACKET GT SCH (23:00)
[2019-09-15] VITALS (7 sets, daily range): BP systolic 90–107; BP diastolic 47–79
[2019-09-15] MEDS: FERROUS SULFATE 325MG TABLET PO SCH ×3 (07:40→17:40)
[2019-09-15 10:13] LABS: HEMATOCRIT. 28.9 % (36.0-48.0); HEMOGLOBIN. 9.4 g/dL (12.0-16.0); MEAN CORPUSCULAR HEMOGLOBIN 30.1 pg (28.0-32.0); MEAN PLATELET VOLUME 8.8 fl (7.4-10.4); PLATELET 245 x1000/uL (130-400); RED BLOOD CELL COUNT 3.14 mill/uL (4.2-5.4); RED CELL DISTRIBUTION WIDTH 14.3 % (11.6-14.6)
[2019-09-15 10:19] LABS: CHLORIDE 115 mEq/L (98-107)
[2019-09-15] MEDS ORDERED: SODIUM CHLORIDE 0.9% 1,000 ML IV SCH (11:00)
[2019-09-15 14:21] LABS: PLATELET ESTIMATE NORMAL
[2019-09-15] MEDS: LEVETIRACETAM 1,000 MG in SODIUM CHLORIDE 0.9% 100 ML IV SCH (15:15)
[2019-09-15] MEDS ORDERED: PHENYTOIN SODIUM EXTENDED 100MG CAPSULE PO SCH (21:00)
== END 2019-09-15 21:00 | disposition short-term general hospital (02) | DRG 101 ==
LOC: ER 09:39 → 8WST 11:58 → EDBEDREQ 11:59 → ENRESERV 14:06
PROVIDERS: ADMIT Internal Medicine; ATTEND Internal Medicine
PROC: 02H633Z Insertion of Infusion Device into Right Atrium, Percutaneous Approach (ICD-10-PCS; principal; 2019-09-15)
PROC: B548ZZA Ultrasonography of Superior Vena Cava, Guidance (ICD-10-PCS; 2019-09-15)
DX: G40.909 Epilepsy, unspecified, not intractable, without status epilepticus (principal); D64.9 Anemia, unspecified; I50.9 Heart failure, unspecified; I11.0 Hypertensive heart disease with heart failure; F19.10 Other psychoactive substance abuse, uncomplicated; Z93.1 Gastrostomy status; Z86.73 Personal history of transient ischemic attack (TIA), and cerebral infarction without residual deficits; Z74.01 Bed confinement status; Z91.19 Patient's noncompliance with other medical treatment and regimen; Z79.899 Other long term (current) drug therapy
CPT/HCPCS: 36415; 71045; 73030; 76937; 80048; 80061; 80185; 80320; 82607; 82728; 83540; 83550; 83605; 83735; 84100; 84443; 84484; 93005; 93970; 96361; 96374; 99285; C1725; C1893; J1165; J1650; J1953; J2060; J7030; J7050; G0480